=== PATIENT | female | born 1945 | race Caucasian/White ===

== ENCOUNTER 2016-12-27 16:10 | Emergency (ER) | payer OTHER, BC ==
[~2016-12-27] VITALS: Ht 160 cm; Wt 68.0 kg
[2016-12-27 18:37] VITALS: BP 152/84
== END 2016-12-27 18:37 | disposition home or self-care (01) ==
LOC: ED 16:10
DX: S06.0X9A Concussion with loss of consciousness of unspecified duration, initial encounter (principal); S13.4XXA Sprain of ligaments of cervical spine, initial encounter; S51.801A Unspecified open wound of right forearm, initial encounter; I10 Essential (primary) hypertension; E11.9 Type 2 diabetes mellitus without complications; Z88.0 Allergy status to penicillin; W17.89XA Other fall from one level to another, initial encounter; Y93.89 Activity, other specified; Y99.8 Other external cause status; Y92.89 Other specified places as the place of occurrence of the external cause

== ENCOUNTER → 2017-06-20 | Outpatient (CLI) | payer OTHER, BC | END | disposition home or self-care (01) | LOC: CT 12:13 | PROC: BP29ZZZ Computerized Tomography (CT Scan) of Left Shoulder (ICD-10-PCS; principal; 2017-06-20) | DX: S46.012D Strain of muscle(s) and tendon(s) of the rotator cuff of left shoulder, subsequent encounter (principal); X58.XXXA Exposure to other specified factors, initial encounter; Y92.9 Unspecified place or not applicable ==

== ENCOUNTER 2019-04-03 22:09 | Emergency (ER) | payer OTHER, BC ==
[~2019-04-03] VITALS: Ht 162.6 cm; Wt 63.5 kg
[2019-04-03 22:25] VITALS: Ht 162.6 cm; Wt 63.5 kg
[2019-04-04 00:46] VITALS: BP 118/78
== END 2019-04-04 00:30 | disposition home or self-care (01) ==
LOC: ED 22:09
DX: S76.011A Strain of muscle, fascia and tendon of right hip, initial encounter (principal); S50.01XA Contusion of right elbow, initial encounter; I10 Essential (primary) hypertension; Z88.0 Allergy status to penicillin; Z88.4 Allergy status to anesthetic agent; W18.30XA Fall on same level, unspecified, initial encounter; Y93.89 Activity, other specified; Y92.89 Other specified places as the place of occurrence of the external cause; Y99.8 Other external cause status
CPT/HCPCS: J2270; Q0162